=== PATIENT | female | born 1990 | race Caucasian/White ===

== ENCOUNTER 2021-02-22 10:45 | Inpatient (IN) | payer OTHER ==
[2021-02-22 12:39] VITALS: BMI 26.3
[2021-02-22 12:52] LABS: BASO % 0.2 % (0-2.0); EOS % 0.1 % (0-4.5); HEMATOCRIT 27.7 % (32.4-45.2); LYMPH % 15.4 % (8-40); MCH 22.5 pg (25.7-33.7); MCHC 32.4 g/dl (32.0-36.0); MEAN CELL VOLUME 69.5 fl (80-96); MEAN PLT VOLUME 8.4 fl (7.5-11.1); MONO % 3.4 % (3.8-10.2); NEUT % 80.9 % (42.8-82.8); PLATELET COUNT 129 10^3/uL (134-434); RBC 3.98 M/mm3 (3.60-5.2); RDW 19.4 % (11.6-15.6); WHITE BLOOD COUNT 8.9 K/mm3 (4.0-10.0)
[2021-02-22 12:59] LABS: INR 0.95 (0.83-1.09); PROTHROMBIN TIME (PATIENT) 11.7 SEC (9.7-13.0)
[2021-02-22 13:02] LABS: ACTIVATED PTT 25.9 SECONDS (25.2-36.5)
[2021-02-22] MEDS ORDERED: OXYTOCIN 20 UNITS in 0.9% NS 20 UNIT/1,000 ML INFUS.BAG IV ONE (13:03)
[2021-02-22 13:09] LABS: CALCIUM 7.9 mg/dL (8.5-10.1)
[2021-02-22 13:10] LABS: BLOOD UREA NITROGEN 9.2 mg/dL (7-18)
[2021-02-22 13:13] LABS: CREATININE 0.6 mg/dL (0.55-1.3)
[2021-02-22] MEDS ORDERED: LIDOCAINE HCL 1% PRESERVATIVE FREE - 30ML VIAL ONE (13:43)
[2021-02-22] MEDS ORDERED: ACETAMINOPHEN 325 MG TABLET (FP) ONE (14:13)
[2021-02-22] MEDS ORDERED: IBUPROFEN 600 MG TABLET (FP) PO ONE (14:13)
[2021-02-22] MEDS ORDERED: D5W-LR W/ 20 UNITS OXYTOCIN 20 UNIT/1,000 ML INFUS.BAG IV SCH (14:15)
[2021-02-22] MEDS ORDERED: BENZOCAINE 28 GM HEMORRHOIDAL OINTMENT TP PRN (14:15)
[2021-02-22] MEDS ORDERED: METHYLERGONOVINE MALEATE 0.2 MG/1 ML AMP IM PRN (14:15)
[2021-02-22] MEDS: ACETAMINOPHEN 325 MG TABLET (FP) PO PRN ×2 (14:15→22:13)
[2021-02-22] MEDS ORDERED: WITCH HAZEL 50% (TUCKS) 40 PAD/JAR PAD TP PRN (14:15)
[2021-02-22] MEDS: IBUPROFEN 600 MG TABLET (FP) PO PRN ×2 (14:15→22:14)
[2021-02-22] MEDS ORDERED: BENZOCAINE 20% 57 GM BOTTLE TP PRN (14:15)
[2021-02-22] MEDS ORDERED: BISACODYL 10 MG SUPP.RECT RC PRN (14:15)
[2021-02-22 14:39] LABS: CORD BASE EXCESS -7.9 mmol/L (0-2); CORD HCO3 17.2 mmHg (20-29); CORD PCO2 34.3 mmHg (30-78); CORD pH 7.318 (7.14-7.44)
[2021-02-22] MEDS: FERROUS SO4 325 MG TABLET (FP) PO SCH (17:40)
[2021-02-23] MEDS: FERROUS SO4 325 MG TABLET (FP) PO SCH ×2 (09:00→18:15)
[2021-02-23 09:31] LABS: BASO % 0.1 % (0-2.0); EOS % 0.2 % (0-4.5); HEMATOCRIT 23.8 % (32.4-45.2); HEMOGLOBIN 7.6 GM/dL (10.7-15.3); LYMPH % 17.3 % (8-40); MCH 22.6 pg (25.7-33.7); MCHC 31.9 g/dl (32.0-36.0); MEAN CELL VOLUME 70.7 fl (80-96); MEAN PLT VOLUME 9.4 fl (7.5-11.1); MONO % 4.6 % (3.8-10.2); NEUT % 77.8 % (42.8-82.8); PLATELET COUNT 126 10^3/uL (134-434); RBC 3.36 M/mm3 (3.60-5.2); RDW 19.6 % (11.6-15.6); WHITE BLOOD COUNT 8.9 K/mm3 (4.0-10.0)
[2021-02-23] MEDS: PRENATAL VITAMINS W/ FOLIC ACID TABLET (FP) PO SCH (09:48)
[2021-02-23] MEDS: IBUPROFEN 600 MG TABLET (FP) PO PRN (18:21)
[2021-02-23] MEDS: ACETAMINOPHEN 325 MG TABLET (FP) PO PRN (18:22)
[2021-02-23] MEDS ORDERED: SENNOSIDES/DOCUSATE COMBO (SENNA PLUS) TABLET (UD) PO PRN (22:00)
[2021-02-24 08:51] VITALS: BP 98/59; PULSE 70; TEMP 97.9
[2021-02-24] MEDS: FERROUS SO4 325 MG TABLET (FP) PO SCH (09:00)
[2021-02-24] MEDS: PRENATAL VITAMINS W/ FOLIC ACID TABLET (FP) PO SCH (09:23)
[2021-02-24] MEDS: ACETAMINOPHEN 325 MG TABLET (FP) PO PRN (09:23)
[2021-02-24] MEDS: IBUPROFEN 600 MG TABLET (FP) PO PRN (09:24)
== END 2021-02-24 12:50 | disposition home or self-care (01) | DRG 560 ==
LOC: JDEL 10:45 → JLDR 11:30 → J3W 16:05
PROVIDERS: ADMIT Family Medicine; ATTEND Family Medicine
PROC: 10E0XZZ Delivery of Products of Conception, External Approach (ICD-10-PCS; principal; 2021-02-22)
PROC: 0W8NXZZ Division of Female Perineum, External Approach (ICD-10-PCS; 2021-02-22)
PROC: 0HQ9XZZ Repair Perineum Skin, External Approach (ICD-10-PCS; 2021-02-22)
PROC: 10907ZC Drainage of Amniotic Fluid, Therapeutic from Products of Conception, Via Natural or Artificial Opening (ICD-10-PCS; 2021-02-22)
DX: O70.0 First degree perineal laceration during delivery (principal); Z3A.39 39 weeks gestation of pregnancy; Z37.0 Single live birth
CPT/HCPCS: 36415; 36600; 59409; 80048; 82803; 85025; 85610; 85730; 86780; 86850; 86900; 86901; C9803; U0003; U0005